=== PATIENT | female | born 1965 | race Caucasian/White ===

== ENCOUNTER 2018-12-10 14:38 | Emergency (ER) | payer SELFPAY ==
--- NOTE | 2018-12-10 14:50 | ER Report ---
History and Physical Time Seen By MD: 14:44 HPI/ROS CHIEF COMPLAINT: Depression and suicidal ideation HISTORY OF PRESENT ILLNESS: This is a 53-year-old female who presents to emergency department via EMS from [facility] [place] for depression and suicidal ideations. Patient has a long history of depression and anxiety and chronic pain. She's been on Percocet 10.54 roughly 5 years she's also been on Cymbalta for a number of years, her provider was transitioning her from Cymbalta to Prozac, as her depression has become worse. She was on 120 mg daily, she went from 120 mg to 60 mg for 7 days and then stopped this past Monday. Since stopping the Cymbalta, she's had tactile disturbances, increased in depression, anxiety and suicidal thoughts. She states the only thing that she finds work lifting for is her son and her horse, she and her are currently not getting along. She also states she's had "cold symptoms for the last several days as well". Nonproductive cough no nausea or vomiting. No chest pain. She does have chronic pain in her back, hips and knees, she's had bilateral hip replacements, apparently has degenerative disease in her knees and scoliosis. REVIEW OF SYSTEMS: Constitutional: No fever, no chills. Eyes: No discharge. ENT: No sore throat. Cardiovascular: No chest pain, no palpitations. Respiratory: As above. Gastrointestinal: No abdominal pain, no vomiting. Genitourinary: No hematuria. Musculoskeletal: No back pain. Skin: No rashes. Neurological: As above. Psychological: As above. Allergies: Coded Allergies: bupropion (Verified Adverse Reaction, Unknown, AMS, 12/10/18) Home Meds Reported Medications Rizatriptan Benzoate (MAXALT) 10 Mg Tablet, 10 MG PO PRN PRN for MIGRAINE 12/10/18 Ibuprofen (IBUPROFEN) 600 Mg Tablet, 1 TAB PO Q6H PRN for PAIN/HEADACHE, TAB 12/10/18 Amitriptyline Hcl (AMITRIPTYLINE HCL) 25 Mg Tablet, 25 MG PO QHS, #5 TAB 12/10/18 Loratadine (CLARITIN) 10 Mg Capsule, 10 MG PO DAILY, CAPSULE 12/10/18 Celecoxib (CELEBREX) 200 Mg Capsule, 400 MG PO QDAY, CAPSULE 5/20/19 Oxycodone Hcl/Acetaminophen (PERCOCET 7.5-325 MG TABLET) 1 Each Tablet, 2 EACH PO Q6H, TAB 12/10/18 Discontinued Reported Medications Fluoxetine Hcl (PROZAC) 20 Mg Capsule, 20 MG PO QDAY, CAPSULE 12/10/18 Past Medical/Surgical History Patient has a past medical and surgical history of post menopause, , bilateral hip surgery, chronic back pain, lumpectomy, depression, anxiety. Reviewed Nurses Notes: Yes Constitutional Vital Sign - Last 24 Hours 12/10/18 12/10/18 12/10/18 12/10/18 14:47 15:00 15:30 16:00 Temp 98.7 Pulse 67 66 61 62 Resp 16 B/P (MAP) 143/105 121/110 (114) 129/86 (100) 122/56 (78) Pulse Ox 94 98 95 98 O2 Delivery Nasal Cannula 12/10/18 12/10/18 12/10/18 16:04 16:30 16:30 Pulse 65 65 B/P (MAP) 129/88 (102) 142/84 (103) 142/84 (103) Pulse Ox 97 97 Physical Exam General Appearance: The patient is alert, has no immediate need for airway protection and no signs of toxicity. Eyes: Pupils equal and round no pallor or injection. ENT, Mouth: Mucous membranes are moist. Respiratory: There are no retractions, lungs are clear to auscultation. Cardiovascular: Regular rate and rhythm. No murmurs, clicks or rubs. Gastrointestinal: Abdomen is soft and non tender, no masses, bowel sounds normal. Neurological: Alert and oriented 4. Moving all activities. Follow. No focal neurodeficits. Skin: Warm and dry, no rashes. Musculoskeletal: Neck is supple non tender. Extremities are nontender, nonswollen and have full range of motion. Psychological: Patient is very tearful, anxious, she is fidgety, anxious on the gurney. She is however making good eye contact, is very pleasant and cooperative. DIFFERENTIAL DIAGNOSIS: After history and physical exam differential diagnosis was considered for depression, suicidal ideation. Medical Decision Making Data Points Result Diagram: 12/10/18 1529 12/10/18 1529 Laboratory Hematology Test 12/10/18 15:00 12/10/18 15:29 Urine Color Yellow Urine Clarity Clear Urine pH 6.0 pH (4.8-9.5) Urine Specific [place] 1.016 Urine Protein Negative mg/dL (NEGATIVE) Urine Glucose (UA) Negative mg/dL (NEGATIVE) Urine Ketones Trace mg/dL (NEGATIVE) Urine Blood Negative (NEGATIVE) Urine Nitrite Negative (NEGATIVE) Urine Bilirubin Negative (NEGATIVE) Urine Urobilinogen Negative mg/dL (0.2-1.9) Urine Leukocyte Esterase Negative (NEGATIVE) Urine RBC <1 /HPF (0-2/HPF) Urine WBC 1 /HPF (0-5/HPF) Urine Squamous Epithelial Cells None /LPF (</=FEW) Urine Bacteria Negative /HPF (NONE-FEW) Urine Mucus None /HPF (NONE-FEW) Urine HCG, Qualitative Negative (NEGATIVE) Urine Opiates Screen Positive Urine Barbiturates Screen Negative Ur Tricyclic Antidepressants Screen Positive Urine Phencyclidine Screen Negative Urine Amphetamines Screen Negative Urine Benzodiazepines Screen Positive Urine Cocaine Screen Negative Urine Cannabinoids Screen Negative Red Blood Count 3.99 M/uL (4.17-5.56) Mean Corpuscular Volume 96.6 fL (80.0-96.0) Mean Corpuscular Hemoglobin 31.8 pg (26.0-33.0) Mean Corpuscular Hemoglobin Concent 32.9 g/dL (32.0-36.0) Red Cell Distribution Width 13.6 % (11.5-14.5) Mean Platelet Volume 8.1 fL (7.2-11.1) Neutrophils (%) (Auto) 46.8 % (39.4-72.5) Lymphocytes (%) (Auto) 42.9 % (17.6-49.6) Monocytes (%) (Auto) 6.2 % (4.1-12.4) Eosinophils (%) (Auto) 3.2 % (0.4-6.7) Basophils (%) (Auto) 0.9 % (0.3-1.4) Nucleated RBC Relative Count (auto) 0.0 /100WBC Neutrophils # (Auto) 2.8 K/uL (2.0-7.4) Lymphocytes # (Auto) 2.6 K/uL (1.3-3.6) Monocytes # (Auto) 0.4 K/uL (0.3-1.0) Eosinophils # (Auto) 0.2 K/uL (0.0-0.5) Basophils # (Auto) 0.1 K/uL (0.0-0.1) Nucleated RBC Absolute Count (auto) 0.00 K/uL Sodium Level 139 mmol/L (137-145) Potassium Level 4.1 mmol/L (3.5-5.0) Chloride Level 107 mmol/L (98-107) Carbon Dioxide Level 23 mmol/L (22-31) Blood Urea Nitrogen 16 mg/dl (7-18) Creatinine 0.50 mg/dl (0.52-1.04) Glomerular Filtration Rate Calc > 60.0 Random Glucose 83 mg/dl (75-110) Calcium Level 9.3 mg/dl (8.4-10.2) Magnesium Level 2.0 mg/dl (1.7-2.2) Total Bilirubin 0.2 mg/dl (0.2-1.3) Aspartate Amino Transf (AST/SGOT) 17 U/L (0-35) Alanine Aminotransferase (ALT/SGPT) 31 U/L (0-56) Alkaline Phosphatase 87 U/L (0-126) Total Protein 6.3 g/dl (6.3-8.2) Albumin 3.8 g/dl (3.5-5.0) Salicylates Level < 10 mg/L Salicylate Last Dose Date unk Acetaminophen Level < 10 ug/ml Serum Alcohol < 10 mg/dl Chemistry Test 12/10/18 15:00 12/10/18 15:29 Urine Color Yellow Urine Clarity Clear Urine pH 6.0 pH (4.8-9.5) Urine Specific [place] 1.016 Urine Protein Negative mg/dL (NEGATIVE) Urine Glucose (UA) Negative mg/dL (NEGATIVE) Urine Ketones Trace mg/dL (NEGATIVE) Urine Blood Negative (NEGATIVE) Urine Nitrite Negative (NEGATIVE) Urine Bilirubin Negative (NEGATIVE) Urine Urobilinogen Negative mg/dL (0.2-1.9) Urine Leukocyte Esterase Negative (NEGATIVE) Urine RBC <1 /HPF (0-2/HPF) Urine WBC 1 /HPF (0-5/HPF) Urine Squamous Epithelial Cells None /LPF (</=FEW) Urine Bacteria Negative /HPF (NONE-FEW) Urine Mucus None /HPF (NONE-FEW) Urine HCG, Qualitative Negative (NEGATIVE) Urine Opiates Screen Positive Urine Barbiturates Screen Negative Ur Tricyclic Antidepressants Screen Positive Urine Phencyclidine Screen Negative Urine Amphetamines Screen Negative Urine Benzodiazepines Screen Positive Urine Cocaine Screen Negative Urine Cannabinoids Screen Negative White Blood Count 6.0 k/uL (4.5-11.0) Red Blood Count 3.99 M/uL (4.17-5.56) Hemoglobin 12.7 g/dL (12.0-16.0) Hematocrit 38.6 % (34.0-47.0) Mean Corpuscular Volume 96.6 fL (80.0-96.0) Mean Corpuscular Hemoglobin 31.8 pg (26.0-33.0) Mean Corpuscular Hemoglobin Concent 32.9 g/dL (32.0-36.0) Red Cell Distribution Width 13.6 % (11.5-14.5) Platelet Count 260 K/uL (150-450) Mean Platelet Volume 8.1 fL (7.2-11.1) Neutrophils (%) (Auto) 46.8 % (39.4-72.5) Lymphocytes (%) (Auto) 42.9 % (17.6-49.6) Monocytes (%) (Auto) 6.2 % (4.1-12.4) Eosinophils (%) (Auto) 3.2 % (0.4-6.7) Basophils (%) (Auto) 0.9 % (0.3-1.4) Nucleated RBC Relative Count (auto) 0.0 /100WBC Neutrophils # (Auto) 2.8 K/uL (2.0-7.4) Lymphocytes # (Auto) 2.6 K/uL (1.3-3.6) Monocytes # (Auto) 0.4 K/uL (0.3-1.0) Eosinophils # (Auto) 0.2 K/uL (0.0-0.5) Basophils # (Auto) 0.1 K/uL (0.0-0.1) Nucleated RBC Absolute Count (auto) 0.00 K/uL Glomerular Filtration Rate Calc > 60.0 Calcium Level 9.3 mg/dl (8.4-10.2) Magnesium Level 2.0 mg/dl (1.7-2.2) Total Bilirubin 0.2 mg/dl (0.2-1.3) Aspartate Amino Transf (AST/SGOT) 17 U/L (0-35) Alanine Aminotransferase (ALT/SGPT) 31 U/L (0-56) Alkaline Phosphatase 87 U/L (0-126) Total Protein 6.3 g/dl (6.3-8.2) Albumin 3.8 g/dl (3.5-5.0) Salicylates Level < 10 mg/L Salicylate Last Dose Date unk Acetaminophen Level < 10 ug/ml Serum Alcohol < 10 mg/dl Toxicology Test 12/10/18 15:00 12/10/18 15:29 Urine Opiates Screen Positive Urine Barbiturates Screen Negative Ur Tricyclic Antidepressants Screen Positive Urine Phencyclidine Screen Negative Urine Amphetamines Screen Negative Urine Benzodiazepines Screen Positive Urine Cocaine Screen Negative Urine Cannabinoids Screen Negative Salicylates Level < 10 mg/L Salicylate Last Dose Date unk Acetaminophen Level < 10 ug/ml Serum Alcohol < 10 mg/dl Urinalysis Test 12/10/18 15:00 Urine Color Yellow Urine Clarity Clear Urine pH 6.0 pH (4.8-9.5) Urine Specific [place] 1.016 Urine Protein Negative mg/dL (NEGATIVE) Urine Glucose (UA) Negative mg/dL (NEGATIVE) Urine Ketones Trace mg/dL (NEGATIVE) Urine Blood Negative (NEGATIVE) Urine Nitrite Negative (NEGATIVE) Urine Bilirubin Negative (NEGATIVE) Urine Urobilinogen Negative mg/dL (0.2-1.9) Urine Leukocyte Esterase Negative (NEGATIVE) Urine RBC <1 /HPF (0-2/HPF) Urine WBC 1 /HPF (0-5/HPF) Urine Squamous Epithelial Cells None /LPF (</=FEW) Urine Bacteria Negative /HPF (NONE-FEW) Urine Mucus None /HPF (NONE-FEW) Urine HCG, Qualitative Negative (NEGATIVE) EKG/Imaging Imaging ATIENT NAME: Jaclyn Hernández : 1965 MR: [id number] V: [id number] EXAM DATE: ORDERING PHYSICIAN: ALISIA NOLEN TECHNOLOGIST: Location: [facility] Patient: Jaclyn Hernández : 1965 Visit/Account:[id number] Date of Sevice: 12/10/2018 Study: Frontal and lateral views of the chest Indication: Cough, chest tightness Comparison study: None Findings: PA and lateral views of the chest demonstrate no evidence of acute infiltrate. There is no evidence of pleural effusion. There is no evidence of pneumothorax. The mediastinal, cardiac, and diaphragmatic contours are unremarkable. There is a round structure present at the right cardiophrenic angle. This likely represents a fat pad. There are no previous studies available for comparison. The visualized bony structures are unremarkable. IMPRESSION: No significant abnormality identified. There is a round density present at the right cardiophrenic angle. This likely represents a fat pad. Report Dictated By: Carlos Godinez at 12/10/2018 3:57 PM Report E-Signed By: Carlos Godinez at 12/10/2018 4:00 PM [id number] ED Course/Re-evaluation ED Course The patient was admitted to room. A history and physical obtained. Differential diagnoses were considered. IV was in place via EMS from while in [place], a CBC, CMP were obtained, behavioral health labs were drawn, UA was collected. Urine drug screen. CBC showing MCV 96.6, chemistry unremarkable, toxicology showing positive for opiates, patient is on chronic opioid treatment for her pain, tricyclics, positive for benzodiazepine. Patient did get Versed en route. Negative UA. I discussed the case with Dr. Emerson, the patient is requesting help and wanting to be admitted to the behavioral health unit. She is accepted patient in the behavioral health unit. Patient remained cooperative while in the emergency department. I did give her 30 mg Cymbalta as well as her schedule 7.5 mg oxycodone. No acute findings on the chest x-ray. 12/10/2018 4:49:06 pm I did speak with Dr. Brooks, the therapist audio production instructor, she's accepted the patient in to the behavioral health unit for depression and suicidal ideation. Decision to Disposition Date: December 10, 2018 Decision to Disposition Time: 16:49 Depart Departure Latest Vital Signs Vital Signs Date Time Temp Pulse Resp B/P (MAP) Pulse Ox O2 Delivery O2 Flow Rate FiO2 12/10/18 16:30 65 142/84 (103) 97 12/10/18 14:47 98.7 16 Nasal Cannula Impression: Primary Impression: Suicidal ideations Additional Impression: Depression Condition: Improved Disposition: XFER TO [facility] Problem Qualifiers Additional Impression: Depression Depression Type: unspecified Qualified Codes: F32.9 - Major depressive disorder, single episode, unspecified ALISIA NOLEN SENIOR SUPPLY CHAIN ANALYST-BC December 10, 2018 14:50
[2018-12-10] MEDS ORDERED: FLUO-202 PO (14:54)
[2018-12-10] MEDS ORDERED: LORA10CA3 PO (14:54)
[2018-12-10] MEDS ORDERED: OXYC-869 PO (14:54)
[2018-12-10] MEDS ORDERED: CELE-1 PO (14:54)
[2018-12-10] MEDS ORDERED: LORazepam 2 MG/ML VIAL IVP ONE (15:15)
[2018-12-10] MEDS ORDERED: DULoxetine HCL 30 MG CAPCR PO ONE (15:25)
[2018-12-10 15:50] LABS: PLATELET COUNT, AUTOMATED 260 K/uL (150-450)
[2018-12-10] MEDS ORDERED: oxyCODON/ACET (*)5/325MG (CII) 1 TAB TAB PO ONE (15:50)
--- NOTE | 2018-12-10 16:23 | RADIOLOGY IMAGING REPORT ---
FACILITY: [facility] PATIENT NAME: Jaclyn Hernández : 1965 MR: [id number] V: [id number] EXAM DATE: ORDERING PHYSICIAN: ALISIA NOLEN TECHNOLOGIST: Location: [facility] [place] Patient: Jaclyn Hernández : 1965 Visit/Account:[id number] Date of Sevice: 12/10/2018 Study: Frontal and lateral views of the chest Indication: Cough, chest tightness Comparison study: None Findings: PA and lateral views of the chest demonstrate no evidence of acute infiltrate. There is no evidence of pleural effusion. There is no evidence of pneumothorax. The mediastinal, cardiac, and diaphragmatic contours are unremarkable. There is a round structure pre sent at the right cardiophrenic angle. This likely represents a fat pad. There are no previous studie s available for comparison. The visualized bony structures are unremarkable. IMPRESSION: No significant abnormality identified. There is a round density present at the right card iophrenic angle. This likely represents a fat pad. Report Dictated By: Carlos Godinez at 12/10/2018 3:57 PM Report E-Signed By: Carlos Godinez at 12/10/2018 4:00 PM [id number]
[2018-12-10 16:30] VITALS: BP 142/84
[2018-12-10] MEDS ORDERED: AMIT-106 PO (19:14)
[2018-12-10] MEDS ORDERED: IBUP600T22 PO (19:14)
[2018-12-10] MEDS ORDERED: RIZA10TA PO (19:14)
== END 2018-12-10 17:50 ==
LOC: ER 14:55
DX: F32.9 Major depressive disorder, single episode, unspecified (principal)
CPT/HCPCS: 71046; 80305; 80320; 80329; 81001; 81025; 82040; 82247; 82310; 82374; 82435; 82565; 82947; 83735; 84075; 84132; 84155; 84295; 84443; 84450; 84460; 84520; 85025; 99284

== ENCOUNTER 2018-12-10 17:12 | Inpatient (IN) | payer SELFPAY ==
[~2018-12-10] VITALS: Ht 170.2 cm; Wt 88.5 kg
[~2018-12-10 17:12] MED LIST: CELE-1 PO; FLUO-202 PO; LORA10CA3 PO; OXYC-869 PO
[2018-12-10] MEDS ORDERED: ACETAMINOPHEN 325 MG TAB PO PRN (17:35)
[2018-12-10] MEDS ORDERED: MAG HYD/AL HYD/SIMETH 30ML UDC PO PRN (17:35)
[2018-12-10 18:58] VITALS: BP 106/84
[2018-12-10] MEDS ORDERED: AMIT-106 PO (19:14)
[2018-12-10] MEDS ORDERED: RIZA10TA PO (19:14)
[2018-12-10] MEDS ORDERED: IBUP600T22 PO (19:14)
--- NOTE | 2018-12-10 19:29 | EKG ---
[facility] PATIENT NAME: ELIAS MCGEE : [id number] MR: [id number] V: [id number] EXAM DATE: ORDERING PHYSICIAN: CONRADO GRACIA TECHNOLOGIST: LEYDA Test Reason : PANIC ATTACK Blood Pressure : / mmHG Vent. Rate : 072 BPM Atrial Rate : 072 BPM P-R Int : 154 ms QRS Dur : 082 ms QT Int : 386 ms P-R-T Axes : 064 067 044 degrees QTc Int : 422 ms Normal sinus rhythm Cannot rule out Anterior infarct , age undetermined Abnormal ECG No previous ECGs available Confirmed by PLACIDO GEE ([id number]) on 12/11/2018 6:32:24 AM Referred By: Confirmed By:PLACIDO GEE
[2018-12-10 19:30] VITALS: BP 127/75
[2018-12-10] MEDS: IBUPROFEN 600 MG TAB PO PRN (20:33)
[2018-12-10] MEDS: oxyCODON/ACET (*)5/325MG (CII) 1 TAB TAB PO PRN (20:46)
[2018-12-10] MEDS ORDERED: AMITRIPTYLINE HCL 25 MG TAB PO SCH (21:00)
--- NOTE | 2018-12-11 00:30 | NUR ---
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 MD Chun, notified. 4mg zofran, 10 mg Maxalt and 2 tabs Percoset ordered. Pt took the zofran and Maxalt but refused Percoset.
[2018-12-11] MEDS ORDERED: ONDANSETRON 4 MG TAB PO PRN (00:35)
[2018-12-11] MEDS ORDERED: oxyCODON/ACET (*)5/325MG (CII) 1 TAB TAB PO ONE (00:40)
[2018-12-11] MEDS: RIZATRIPTAN BENZOAT (ODT) 10MG PO PRN ×2 (01:06→08:14)
[2018-12-11 05:14] VITALS: BP 111/69
[2018-12-11] MEDS: LORATADINE 10 MG TAB PO SCH (08:15)
[2018-12-11] MEDS: CELECOXIB 200 MG CAP PO SCH (08:15)
[2018-12-11] MEDS: MULTIVITAMINS PO SCH (08:15)
[2018-12-11] MEDS: oxyCODON/ACET (*)5/325MG (CII) 1 TAB TAB PO PRN ×4 (08:19→20:56)
[2018-12-11] MEDS ORDERED: DULoxetine HCL 30 MG CAPCR PO SCH (09:00)
[2018-12-11] MEDS: IBUPROFEN 600 MG TAB PO PRN ×2 (11:42→19:31)
[2018-12-11 14:26] VITALS: BP 106/69
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
[2018-12-11 20:56] VITALS: BP 120/94
[2018-12-11] MEDS ORDERED: traZODone HCL 50 MG TAB PO SCH (21:00)
[2018-12-12 03:01] VITALS: BP 103/62
[2018-12-12] MEDS: IBUPROFEN 600 MG TAB PO PRN (06:08)
[2018-12-12] MEDS: oxyCODON/ACET (*)5/325MG (CII) 1 TAB TAB PO PRN ×3 (07:21→16:53)
[2018-12-12] MEDS: LORATADINE 10 MG TAB PO SCH (08:22)
[2018-12-12] MEDS: CELECOXIB 200 MG CAP PO SCH (08:22)
[2018-12-12] MEDS: MULTIVITAMINS PO SCH (08:23)
[2018-12-12] MEDS ORDERED: DULoxetine HCL 30 MG CAPCR PO ONE (09:00)
--- NOTE | 2018-12-12 10:24 | BHS Progress Note ---
[facility] Assessment and Plan [id number] Encounter Date: December 12, 2018 [id number] Encounter Time: 09:58 [facility] Plan: Admit to Unit, Necessary Precautions, Individual/Group Therapy, Adm in/Titrate Meds, Educate Patient DAVID CHANDLER DO December 12, 2018 10:24
--- NOTE | 2018-12-12 13:59 | DISCHARGE SUMMARY ---
DATE OF ADMISSION: December 10, 2018 DATE OF DISCHARGE: December 11, 2018 ATTENDING PHYSICIAN Kiarra Riley, TYPE OF ADMISSION Voluntary. TYPE OF DISCHARGE Routine. DISCHARGE DIAGNOSIS 1. Major depressive episode, recurrent, moderate severity, improved. 2. Panic disorder without agarophobia. 3. Chronic pain syndrome secondary to degenerative joint disease with opioid dependence. 4. Migraine cephalgia. 5. Caffeine dependence. INITIAL PRESENTATION AND REASON FOR ADMISSION. This is the first-ever inpatient psychiatric admission for this 53-year old woman who presented to the emergency room on a voluntary basis for depression with suicidal thoughts. She reported a long history of depression, stating that sometimes she even feels suicidal when her depression intensifies. Over the past 1-1/2 weeks, she had been feeling much more depressed. She had been working with her primary care doctor, Dr. Velasco, to taper off of Cymbalta, which she had been on for several years, anticipating going back on Prozac since the patient felt that the Cymbalta was not helping so well anymore with her depression. The patient had been taking Cymbalta 120 mg in the past. However, her dose was cut to 60 mg for seven days and then stopped it altogether. At the same time, Prozac 20 mg was started. Over the week, coinciding with the decrease in Cymbalta, the patient had been noticing pins and needle sensations in her extremities, feeling more depressed and feeling more pain. She thought that maybe she was having opiate withdrawal because she also has chronic pain and takes opiates on a regular basis so she took an additional Percocet in the middle of the night one night last week. On the day prior to admission, she was seen at Dr. Velasco's office because she had a cold and was having some difficulty breathing. She mentioned the thoughts about suicide and Dr. Velasco recommended that she come to [place] for hospitalization to [facility]. She also mentioned that she had a gun when speaking to her and her son. The and son said that they were going to remove the guns from the home. She was transported by ambulance to [facility] and because she had a panic attack in the ambulate, she was medicated with Versed on route to the hospital. In the emergency room, she was cooperative, tearful and expressed thoughts about suicide. She was admitted to [facility] on a voluntary basis. The patient has a long history of depression lasting about 25 years and she describes it as persistent. At times, it worsens but never fully goes away. She has been treated with various antidepressants in the past including Paxil, Prozac, Lexapro and bupropion. The bupropion made her feel anxious. She has never had psychotic symptoms and has never had a suicide attempt. She does report that when her depression is severe she has thoughts about suicide and feels that she is a burden to her family. The patient has chronic pain due to degenerative joint disease that has been going on for about four years and she has been see at a pain clinic in [place]. She also has a history of panic attacks. MEDICATIONS ON ADMISSION 1. Prozac 20 mg daily. 2. Percocet 5/325 two tablets four times daily. She has been on this for five years. 3. Claritin 10 mg daily. 4. Celebrex 400 mg daily. 5. Maxalt 10 mg as needed for migraine. 6. Amitriptyline 25 mg at bedtime. Patient stated on admission that she started the Amitriptyline about six weeks ago when it was suggested by her spine doctor but she said that she has been having headaches ever since and does not want to stay on the Amitriptyline. ALLERGIES Bupropion. HOSPITAL COURSE AND TREATMENT PROVIDED Following admission and discussion about options, Dr. Mccollum and the patient decided to reverse the plan to start her back on Prozac and agreed to restart Cymbalta, increasing the dose to 120 mg. We also discontinued the Amitriptyline and started Trazodone 50 mg at night to help with sleep. She tolerated these changes well. We also learned during our assessment period that Jaclyn drinks large amounts of caffeine daily and even takes caffeine pills. She said that she has decided she needs to stop doing this and we agreed that this could be a problem as far as worsening her insomnia and causing other side effects. Vital signs during the stay were unremarkable. There were no new physical findings and a chest x-ray was also unremarkable. THERAPIES OFFERED AND RESPONSE Jaclyn was engaged in individual and group therapies, focusing on harm reduction strategies, increasing distress tolerance and developing an outpatient safety plan. We also talked about strategies to manage panic attacks, chronic pain and also discussed the effects of opioids. Finally, we also discussed options for release planning and after care. CONSULTS None. RESULTS OF TESTING Labs: CBC on admission found RBC count slightly low at 3.99 with hemoglobin of 12.7 and hematocrit of 38.6. WBC count was 6.0. Differential was normal. Blood chemistries were entirely normal with the exception of creatinine low at 0.5. TSH was 1.8. Sodium 139, potassium 4.1, chloride 107, carbon dioxide 23, BUN 16. Liver enzymes were within normal limits. Urine drug screen was positive for benzodiazepine. However, it is notable that the patient was given Versed in the ambulance on the way to the hospital. Urine opiate screen was also positive, consistent with history of treatment with Percocet. Urinalysis was unremarkable. Chest x-ray found no significant abnormality identified. There was a round density present in the right cardiophrenic angle, consistent with a fat pad. CONDITION AT DISCHARGE VITALS: Temperature 98.5, pulse 67, blood pressure 103/62, oxygen saturation 93%. I met with the patient on the morning of discharge, December 12, 2018, just before 10 a.m. At this time, she is in excellent spirits and feels improved and asking to return home. She complains of feeling home sick and wants to be with her family and her animals. She has completed a safety plan and expresses willingness to take medications and follow up with treatment recommended following discharge. Her is also present at this meeting. Jaclyn rates her depression as 2/10 and denies any suicidal thoughts. PATIENT AND FAMILY INSTRUCTIONS 1. Recommendations for followup: After discussion about her needs, we agreed that Jaclyn should engage in individual as well as medication followup to address her depression. She wants to continue seeing Rod for general medication management as well as management of her pain medications. She wants to slowly but definitely taper and discontinue opiates over a period of months. MEDICATIONS AT DISCHARGE 1. Duloxetine 120 mg in the morning daily. 2. Claritin 10 mg daily as needed for allergies. 3. Celebrex 400 mg daily for pain. 4. Trazodone 50 mg at bedtime for sleep. 5. Maxalt [employer] 10 mg as needed for migraine. 6. Percocet 5/325: Two tablets every four hours as needed for pain up to 8 tablets in 24 hours. This medication is managed by Dr. Velasco. The patient is to discontinue her Amitriptyline. PSYCHIATRIC FOLLOWUP APPOINTMENTS We are making an appointment for Jaclyn to see Fiona Khanna for management of her psychiatric medications and treatment of her depression. THERAPY APPOINTMENTS Jaclyn will see a therapist at the [facility] in [place], [place], and we are assisting her in making an appointment for that. OTHER MEDICAL FOLLOWUP Jaclyn will continue under the care of Dr. Velasco for management of her pain, migraines and other medical needs. Finally, Jaclyn was asked to use the Crisis Line or return to the emergency room should her symptoms recur. JOCE
[2018-12-12] MEDS ORDERED: DULO60CA56 PO (14:24)
[2018-12-12] MEDS ORDERED: TRAZ50TA34 PO (14:28)
[2018-12-12] MEDS ORDERED: MAG-66 PO (14:30)
[2018-12-12] MEDS ORDERED: ACET-1966 PO (14:34)
[2018-12-13] MEDS ORDERED: DULoxetine HCL 30 MG CAPCR PO SCH (09:00)
== END 2018-12-12 18:00 | disposition home or self-care (01) | DRG 885 ==
LOC: BHS 17:12
PROVIDERS: ADMIT Psychiatry & Neurology Psychiatry; ATTEND Psychiatry & Neurology Psychiatry
DX: F33.1 Major depressive disorder, recurrent, moderate (principal); F11.20 Opioid dependence, uncomplicated; F15.20 Other stimulant dependence, uncomplicated; R45.851 Suicidal ideations; F40.01 Agoraphobia with panic disorder; G89.4 Chronic pain syndrome; G43.809 Other migraine, not intractable, without status migrainosus; M17.0 Bilateral primary osteoarthritis of knee; Z96.643 Presence of artificial hip joint, bilateral; Z88.8 Allergy status to other drugs, medicaments and biological substances
CPT/HCPCS: 93005; S0119